=== PATIENT | male | born 1960 | race Caucasian/White ===

== ENCOUNTER → 2017-10-09 11:53 | Outpatient (CLI) | payer OTHER, SELFPAY ==
--- NOTE | 2017-10-09 11:57 | MR_ITS ---
MR knee RT wo con HISTORY: Right knee pain and swelling with limited range of motion, injury with fracture, abnormal CT scan ITS.REASON: evaluate MCL and tibia ORDERING PHYSICIAN: Ashok Simpson MD PATIENT AGE: 57 years COMPARISON: 10/01/2017 TECHNIQUE: Standard multiplanar multiecho sequences are performed without contrast. FINDINGS: There is tear of the anterior cruciate ligament. The posterior cruciate ligament is unremarkable. The medial collateral ligament appears intact. The lateral collateral ligament also appears intact. There is increased T2 signal involving the medial femoral condyle just deep to the attachment of the MCL consistent with bone bruise. The patellar tendon is intact with some tendinosis distally. Quadriceps tendon also has an unremarkable appearance. There is an oblique tear involving the posterior aspect of the lateral meniscus. This is nondisplaced.. A horizontal tear involves the posterior horn of the medial meniscus also nondisplaced Minimally depressed lateral tibial plateau fractures noted posteriorly. There is mild depression of the lateral fracture fragment x 4 mm. Moderate amount bone marrow edema is present in the lateral aspect of the proximal tibia as well as the medial femoral condyle. Edema is also present in the posterior aspect of the medial tibial plateau. There is a moderate sized knee joint effusion with internal heterogeneous echogenicity within the effusion suggesting alignment. Moderate amount of edema is present about the soft tissues of the knee. IMPRESSION: 1. Mildly depressed lateral tibial plateau fracture with bone bruise of the medial femoral condyle and medial tibial plateau with complex knee joint effusion and edema about the knee. 2. Tear of the anterior cruciate ligament. 3. Oblique tear of the posterior heart of the lateral meniscus. 4. Horizontal tear involves the posterior horn of the medial meniscus.
== END ==
PROVIDERS: PCP Family Medicine; Visit Provider Orthopaedic Surgery
DX: S83.411A Sprain of medial collateral ligament of right knee, initial encounter (principal); S82.121A Displaced fracture of lateral condyle of right tibia, initial encounter for closed fracture; S82.111A Displaced fracture of right tibial spine, initial encounter for closed fracture
CPT/HCPCS: 73721

== ENCOUNTER 2017-10-15 11:37 | Outpatient (RCR) | payer OTHER, SELFPAY | END 2017-10-15 12:00 | disposition home or self-care (01) | LOC: PT 11:37 | PROVIDERS: Visit Provider Orthopaedic Surgery | DX: S83.411A Sprain of medial collateral ligament of right knee, initial encounter (principal) | CPT/HCPCS: 97760 ==

== ENCOUNTER → 2017-11-18 09:36 | Outpatient (CLI) | payer OTHER, SELFPAY ==
--- NOTE | 2017-11-18 09:44 | XR_ITS ---
XR knee RT 3V HISTORY: Pain, follow-up fracture ITS.REASON: non weightbearing ORDERING PHYSICIAN: Ashok Simpson MD PATIENT AGE: 57 years COMPARISON: 10/01/2017 FINDINGS: There is history of lateral tibial plateau fracture. Cortical irregularity noted on the lateral tibial plateau on the previous exam is less apparent suggesting healing. No displaced fracture evident. The fracture much more apparent on the CT scan as opposed to the plain film. There remains some increased density in the suprapatellar region suggesting knee joint effusion. IMPRESSION: Healing lateral tibial plateau fracture with knee joint effusion
== END ==
PROVIDERS: Visit Provider Orthopaedic Surgery
DX: S82.141A Displaced bicondylar fracture of right tibia, initial encounter for closed fracture (principal)
CPT/HCPCS: 73562

== ENCOUNTER → 2017-12-31 08:39 | Outpatient (CLI) | payer OTHER, SELFPAY ==
--- NOTE | 2017-12-31 08:47 | XR_ITS ---
XR knee RT 3V HISTORY: Right knee pain ITS.REASON: nonweightbearing ORDERING PHYSICIAN: Ashok Simpson MD PATIENT AGE: 57 years COMPARISON: Several previous studies including MRI scan right knee 10/09/2017 FINDINGS: The nondisplaced fracture of lateral tibial plateaus essentially healed with only very faint radiolucent line seen at the fracture site.. There is mild joint space narrowing medially and is minor spurring of tibial spines. Patellas intact and is no obvious effusion. IMPRESSION: Essentially healed lateral tibial plateau fracture
== END ==
PROVIDERS: Visit Provider Orthopaedic Surgery
DX: S82.141A Displaced bicondylar fracture of right tibia, initial encounter for closed fracture (principal)
CPT/HCPCS: 73562

== ENCOUNTER 2018-01-02 08:30 | Outpatient (RCR) | payer OTHER, SELFPAY | END 2018-01-02 08:31 | disposition home or self-care (01) | LOC: PT 08:30 | PROVIDERS: Visit Provider Orthopaedic Surgery | DX: S83.411A Sprain of medial collateral ligament of right knee, initial encounter (principal); S82.111A Displaced fracture of right tibial spine, initial encounter for closed fracture; S82.121A Displaced fracture of lateral condyle of right tibia, initial encounter for closed fracture | CPT/HCPCS: 97110; 97112; 97116; 97163 ==

== ENCOUNTER 2023-02-19 15:19 | Emergency (ER) | payer BC, SELFPAY ==
--- NOTE | 2023-02-19 15:23 | XR_ITS ---
FINAL REPORT CLINICAL HISTORY: RT SHOULDER PAIN COMPARISON: 10/01/2017 FINDINGS: Right shoulder Three views were obtained. There is no acute fracture or dislocation. There is mild AC joint degenerative change. No soft tissue abnormality is identified. IMPRESSION: Mild AC joint degenerative change. Reviewed, Interpreted and Dictated by Rivas Echavarria III, MD Transcribed by Avril Flower Authenticated and . [facility]
--- NOTE | 2023-02-19 15:27 | PC.NURSE ---
Rounded on pt nothing needed at this time,call light at bs
[2023-02-19 16:05] VITALS: BP 150/76; PULSE 80; RESP 21; TEMP 36.7; O2SAT 98; BMI 27.8
--- NOTE | 2023-02-19 16:35 | EXP.UTC ---
Discharge Plan Disposition Patient Disposition: Home, Self-Care Condition: Good Prescriptions Prescriptions: New methocarbamol 500 mg tablet 500 mg PO TID PRN (Reason: muscle spasm) Qty: 12 0RF Referrals Follow up/Referrals: Seth Coppola [Primary Care Provider] - See instructions Activity Restrictions/Add. Instructions Additional Instructions/Restrictions: *Ibuprofen aditi 6 hours with meal as needed for pain/inflammation *Not additional anti-inflammatory like motrin, aleve, advil with the above amount of ibuprofen. You can still take Tylenol every 4 hours as needed if you need something else for pain *Ice 20 minutes every 2 hours for the first 48 hours after the initial injury followed by moist heat every 20 minutes 3-4 times a day to affected area *Muscle relaxer every 8 hours as needed for muscle spasms but remember, it WILL cause drowsiness You cannot take it and drive, operate machinery or care for small children. *Keep this area active, no movement leads to more stiffness, However take it easy and avoid heavy lifting pushing or pulling *Follow up with you family doctor if no improvement for further treatment Clinical Impressions Clinical Impression: Muscle strain Instructions Patient Instructions: How To Perform RICE (Rest, Ice, Compress, Elevate), Muscle Strain, Methocarbamol Discharge ED Provider: Marci Zavala [facility] General Stated complaint: right shoulder, no accident Mode of Arrival: Ambulatory Source of Information: Patient Limitations: No Limitations Time Seen by Provider: 02/19/23 16:30 Description of Symptoms (Recalled from Triage Doc. by RN): PATIENT C/O PAIN TO RIGHT SHOULDER X 3-4 DAYS, NO KNOWN INJURY HEENT Symptoms (Recalled from RN notes): No Resp Symptoms (Recalled from RN notes): No Skin Symptoms (Recalled from RN notes): No MS Symptoms (Recalled from RN notes): Yes Functional Status (Recalled from RN notes): WNL History of Present Illness Provider Complaint: Patient states that he has been having pain in his right shoulder for the last 3-4 days that started after he was pulling some limbs States that he feels like he may have strained his pectoralis muscle Denies falling denies known injury denies radiation of pain Related Data Previous Rx's Medication Instructions Recorded methocarbamol 500 mg tablet 500 mg PO TID PRN muscle spasm #12 02/19/23 tabs Allergies Allergy/AdvReac Type Severity Reaction Status Date / Time codeine Allergy Mild Nausea Verified 09/18/21 10:42 Worker's Comp Is this a Worker's Comp case?: No [facility] Disclaimer: The information contained in this section may have been updated after the patient was seen, as this information can be updated by other users. Social History Smoking Status: Never smoker alcohol intake: never current occupational status: employed Travel in the last 8 weeks: None ROS Obtained: Yes All systems reviewed & no additional complaints except as documented and Yes Systems reviewed as appropriate & no additional complaints except as documented Constitutional Constitutional: Reports system reviewed and no additional complaints, except as documented and Reports as per HPI Cardiovascular Cardiovascular: Reports system reviewed and no additional complaints, except as documented, Reports as per HPI, Denies chest pain, Denies chest pain with activity, Denies dyspnea, Denies edema, Denies lightheadedness and Denies palpitations Respiratory Respiratory: Reports system reviewed and no additional complaints, except as documented, Reports as per HPI and Denies dyspnea Musculoskeletal Musculoskeletal: Reports system reviewed and no additional complaints, except as documented and Reports as per HPI Comments: Pain in pectoralis muscle in right shoulder after pulling some limbs and brush 3-4 days ago Endocrine Endocrine: Denies palpitations Physical Exam General General appearance: alert and in no apparent distress
[2023-02-19 16:51] VITALS: BP 150/76; PULSE 80; RESP 21; TEMP 36.7; O2SAT 98
== END 2023-02-19 16:54 | disposition home or self-care (01) ==
PROVIDERS: Emergency Provider Nurse Practitioner; PCP Family Medicine
DX: S46.911A Strain of unspecified muscle, fascia and tendon at shoulder and upper arm level, right arm, initial encounter (principal); X50.0XXA Overexertion from strenuous movement or load, initial encounter
CPT/HCPCS: 73030; 99204; 99212; G0463

== ENCOUNTER 2023-02-20 21:45 | Emergency (ER) | payer BC, SELFPAY ==
[2023-02-20 21:47] VITALS: BP 163/93; PULSE 67; RESP 20; TEMP 37.3; O2SAT 98; BMI 27.8
[2023-02-20 22:04] VITALS: BP 165/95; PULSE 54; RESP 18; O2SAT 96
--- NOTE | 2023-02-20 22:08 | ECG_ITS ---
APPROVED REPORT Exam: Resting ECG HR:54 bpm ECG Measurements Heart Rate 54 AXES NV 136 P 23 QRSd 105 QRS -1 QT 448 T 40 QTc 433 Conclusion SINUS BRADYCARDIA VOLTAGE CRITERIA FOR LVH [MEETS CRITERIA IN ONE OF: R(aVL), S(V1), R(V5), R(V5/V6)+S(V1)] ABNORMAL ECG UNCONFIRMED REPORT Electronically signed by : Tushar Chapa MD 02/21/2023 07:21:14
--- NOTE | 2023-02-20 22:56 | PC.NURSE ---
Pt is resting quietly, being monitored and waiting to be seen by ER MD
--- NOTE | 2023-02-20 23:01 | HMH.EDGENADL ---
Discharge Plan Disposition Patient Disposition: Home, Self-Care Prescriptions Prescriptions: New lidocaine 5 % adhesive patch,medicated 1 patch topical DAILY Qty: 15 0RF Rx Instructions: leave on most painful area for up to 12 hrs No Action methocarbamol 500 mg tablet 500 mg PO TID PRN (Reason: muscle spasm) Qty: 12 0RF Referrals Follow up/Referrals: Seth Coppola [Primary Care Provider] - See instructions Sudeep Pollack, PT [Physical Therapist] - See instructions (Concern for right pectoralis versus rotator cuff injury) Activity Restrictions/Add. Instructions Additional Instructions/Restrictions: Call your family doctor to establish care for this visit to the emergency department and schedule follow-up within 48 hours to ensure improvement. If you have any worsening of your condition or any other concerning signs or symptoms, return to the emergency department or your primary care doctor for further evaluation. Take Tylenol 1000 mg every 6 hours (4 times daily) and ibuprofen 400 mg every 6 hours (4 times daily) as needed with food and water to prevent GI upset and kidney damage. Wear sling for comfort, do not wear it at night while sleeping to prevent choking. Talk to family doctor about physical therapy, referral has been placed here as well. Clinical Impressions Clinical Impression: Muscle strain of right shoulder Qualifiers: Encounter type: subsequent encounter Qualified Code(s): S46.911D - Strain of unspecified muscle, fascia and tendon at shoulder and upper arm level, right arm, subsequent encounter Discharge ED Provider: Fahad Ocasio [facility] General Chief complaint: Extremity Injury, Upper Stated complaint: upper left chest pain Time Seen by Provider: 02/20/23 22:22 Mode of Arrival: Ambulatory Source of Information: Patient Limitations: No Limitations Description of Symptoms (Recalled from ER Triage Doc. by RN): PT began having right shoulder pain on friday and tried to take otc meds for pain relief, had no releif and then on friday came to [facility]. [facility] gave muscle relaxers and pt stated they have not really helped much, pt denies any other s/s, states the pain the radiate down his right arm and into neck History of Present Illness HPI narrative: Is a 62-year-old male with right shoulder pain presenting with continued right shoulder pain. Patient states that he has had pain since Friday. No initiating incident, but patient is having intermittent, 1 to 2-second, stabbing pains in my right shoulder joint. Was given Robaxin on Friday, 02/18, but did not seem to help. Has been taking muscle relaxer he had at home from previous injury. Denies chest pain, shortness of breath, nausea or vomiting, diaphoresis, numbness, tingling, weakness, or any other concerns. Related Data Previous Rx's Medication Instructions Recorded methocarbamol 500 mg tablet 500 mg PO TID PRN muscle spasm #12 02/19/23 tabs lidocaine 5 % topical patch 1 patch topical DAILY #15 ea 02/20/23 Allergies Allergy/AdvReac Type Severity Reaction Status Date / Time codeine Allergy Mild Nausea Verified 09/18/21 10:42 [facility] Disclaimer: The information contained in this section may have been updated after the patient was seen, as this information can be updated by other users. Social History Smoking Status: Never smoker alcohol intake: never current occupational status: employed Travel in the last 8 weeks: None ROS Obtained: Yes All systems reviewed & no additional complaints except as documented Physical Exam General General appearance: alert, in no apparent distress and other ( ) Head Head exam: atraumatic and normocephalic Eye Eye exam: Present normal appearance, PERRL and EOMI ENT ENT exam: Present mucous membranes moist Neck Neck exam: Present normal inspection, full ROM and trachea midline Respiratory Respiratory exam: Absent respiratory distress, wheezes, stridor, accessory m
[2023-02-20 23:27] VITALS: BP 168/85; PULSE 70; RESP 20; TEMP 36.9; O2SAT 99
== END 2023-02-20 23:28 | disposition home or self-care (01) ==
PROVIDERS: Emergency Provider Emergency Medicine; PCP Family Medicine
DX: S46.911A Strain of unspecified muscle, fascia and tendon at shoulder and upper arm level, right arm, initial encounter (principal); X58.XXXA Exposure to other specified factors, initial encounter; R00.1 Bradycardia, unspecified
CPT/HCPCS: 93005; 99284

== ENCOUNTER 2023-02-21 07:40 | Emergency (ER) | payer BC, SELFPAY ==
[2023-02-21 07:41] VITALS: BP 158/86; PULSE 80; RESP 16; TEMP 36.6; O2SAT 95; BMI 27.8
[2023-02-21 08:11] LABS: Basophils % 0.2 % (0.1-2.0); Eosinophils # 0.1 K/mm3 (0.0-0.4); Eosinophils % 1.8 % (0.1-12.0); Hematocrit 49.8 % (42.0-52.0); Hemoglobin 15.9 g/dL (14.1-18.0); Lymphocytes # 0.8 K/mm3 (0.7-4.5); Lymphocytes % 10.1 % (10-50); Mean Corpuscular HGB Conc 31.9 g/dL (31.8-35.4); Mean Corpuscular Hemoglobin 31.1 pg (27.0-31.2); Mean Corpuscular Volume 97.4 fl (80-94); Mean Platelet Volume 7.2 fl (7.4-10.4); Monocytes # 0.3 K/mm3 (0.1-1.0); Monocytes % 3.4 % (1.7-9.3); Neutrophils # 6.5 K/mm3 (1.8-7.8); Neutrophils % 84.5 % (37.0-80.0); Platelet Count 258 K/mm3 (142-424); Red Blood Count 5.12 M/mm3 (4.60-6.20); Red Cell Distribution Width 13.5 % (11.5-17.5); White Blood Count 7.7 K/mm3 (4.8-10.8)
--- NOTE | 2023-02-21 08:13 | PC.NURSE ---
Dr. Ocasio at [facility] for pt eval
[2023-02-21 08:27] LABS: Alanine Aminotransferase 32 U/L (12-78); Albumin Level 4.5 g/dl (3.5-5.0); Albumin/Globulin Ratio 1.5 (1.1-1.8); Alkaline Phosphatase 74 U/L (38-126); Anion Gap 13.9 mEq/L (5-15); Aspartate Amino Transferase 40 U/L (17-59); Bilirubin,Total 2.4 mg/dl (0.2-1.3); Blood Urea Nitrogen 14 mg/dl (9-20); Calcium 9.1 mg/dl (8.4-10.2); Carbon Dioxide 23 mmol/L (22.0-30.0); Chloride 107 mmol/L (98-107); Creatinine Clearance Estimated 87 mL/min (50-200); Estimated Glomerular Filt Rate 67 ml/min (>60); GFR (African American) 82 ML/MIN (>60); Glucose 137 mg/dl (74-100); Potassium 3.9 mmoL/L (3.5-5.1); Sodium 140 mmol/L (136-145); Total Protein,Serum 7.5 g/dl (6.3-8.2)
--- NOTE | 2023-02-21 08:39 | HMH.EDGENADL ---
Discharge Plan Disposition Patient Disposition: Home, Self-Care Prescriptions Prescriptions: New valacyclovir 1 gram tablet 1,000 mg PO Q8H 10 Days Qty: 30 0RF No Action methocarbamol 500 mg tablet 500 mg PO TID PRN (Reason: muscle spasm) Qty: 12 0RF lidocaine 5 % adhesive patch,medicated 1 patch topical DAILY Qty: 15 0RF Rx Instructions: leave on most painful area for up to 12 hrs Referrals Follow up/Referrals: Seth Coppola [Primary Care Provider] - See instructions Clinical Impressions Clinical Impression: Acute herpes zoster neuropathy Discharge ED Provider: Fahad Ocasio [facility] General Chief complaint: Extremity Injury, Upper Stated complaint: right shoulder pain, no accident Time Seen by Provider: 02/21/23 07:43 Mode of Arrival: Wheelchair Source of Information: Patient Limitations: No Limitations Description of Symptoms (Recalled from ER Triage Doc. by RN): Patient reports he was seen yesterday for right shoulder pain. States that the pain isn't any better and he is now having muscle spasms in it. History of Present Illness HPI narrative: Is a 62-year-old male with recent history of shoulder pain presenting with rash. Patient states rash started popping up evening prior to arrival in 02/20. Started on lateral arm, now down to his fingers. Associated burning, shooting pains. No trauma, believes this is from gardening. No fevers or chills, neck pain, or left-sided rash. Related Data Previous Rx's Medication Instructions Recorded methocarbamol 500 mg tablet 500 mg PO TID PRN muscle spasm #12 02/19/23 tabs lidocaine 5 % topical patch 1 patch topical DAILY #15 ea 02/20/23 valacyclovir 1 gram tablet 1,000 mg PO Q8H 10 days #30 tabs 02/21/23 Allergies Allergy/AdvReac Type Severity Reaction Status Date / Time codeine Allergy Mild Nausea Verified 09/18/21 10:42 [facility] Disclaimer: The information contained in this section may have been updated after the patient was seen, as this information can be updated by other users. Social History Smoking Status: Never smoker alcohol intake: never current occupational status: employed Travel in the last 8 weeks: None ROS Obtained: Yes All systems reviewed & no additional complaints except as documented Physical Exam General General appearance: alert, in no apparent distress and other ( ) Head Head exam: atraumatic and normocephalic Eye Eye exam: Present normal appearance, PERRL and EOMI ENT ENT exam: Present mucous membranes moist Neck Neck exam: Present normal inspection, full ROM and trachea midline Respiratory Respiratory exam: Absent respiratory distress, wheezes, stridor, accessory muscle use or prolonged expiratory phase Cardiovascular Cardiovascular exam: Present regular rate and normal rhythm Abdominal Exam Abdominal exam: Present soft; Absent distention, tenderness, guarding, rebound, rigidity or normal bowel sounds Extremities Exam Extremities exam: Absent edema Neurological Exam Neurological exam: Present alert, oriented X3, CN II-XII intact and normal gait; Absent motor sensory deficit Skin Skin exam: Present warm, dry and rash (Vesicular rash with erythematous base scattered throughout C6 distribution right upper extremity); Absent diaphoresis or erythema Medical Decision Making Medical Records Medical records reviewed: Yes I reviewed the patient's medical records. Omar Inquiry Pt receiving controlled substance: No Omar was queried for this patient: No Vital Signs: 02/21/23 07:41 02/21/23 09:14 02/21/23 09:31 Temperature 97.9 F Temperature Source Oral Pulse Rate 63 67 Pulse Rate [Radial] 80 Respiratory Rate 16 Blood Pressure 148/84 H 149/87 H Blood Pressure [Left Arm] 158/86 H Blood Pressure Mean [Left Arm] 110 Blood Pressure Source [Left Arm] Automatic Cuff Blood Pressure Position [Left Arm] Sitting 02 Sat by Pulse Oximetry 95 95 94 L Oxygen Delivery
--- NOTE | 2023-02-21 09:08 | PC.NURSE ---
Rounded on pt. No needs voiced at this time. Call light within reach.
[2023-02-21 09:14] VITALS: BP 148/84; PULSE 63; O2SAT 95
[2023-02-21 09:31] VITALS: BP 149/87; PULSE 67; O2SAT 94
[2023-02-21 10:38] VITALS: BP 129/61; PULSE 83; RESP 16; TEMP 36.8; O2SAT 98
--- NOTE | 2023-02-21 11:54 | PC.NURSE ---
pt's family came back inside with reports he was nauseated. MD was notified of this and he sent in zofran to pt's pharmacy. Pt was called on his cell phone and notified of the new medication
== END 2023-02-21 11:09 | disposition home or self-care (01) ==
PROVIDERS: Emergency Provider Emergency Medicine; PCP Family Medicine
DX: B02.23 Postherpetic polyneuropathy (principal); M25.511 Pain in right shoulder
CPT/HCPCS: 80053; 85025; 96374; 96375; 99284; J0131